=== PATIENT | male | born 1930 | race American Indian/Alaskan Native ===

== ENCOUNTER 2016-12-10 09:40 | Day surgery (SDC) | payer MEDICARE ==
[2016-12-10] MEDS ORDERED: HEPARIN/NS 5000 UNIT/500ML(CATH LAB) 1,000 ML IR ONE (10:55)
[2016-12-10] MEDS ORDERED: HEPARIN 10,000 UNITS/10 ML ONE (10:55)
[2016-12-10] MEDS ORDERED: XYLOCAINE 2% INFILTRATI ONE (10:56)
[2016-12-10 11:00] LABS: Hematocrit 36.1 % (35.5-45.6); Hemoglobin 11.7 gm/dl (11.8-15.2); Mean Corpuscular HGB Conc 32 % (32-34); Mean Corpuscular Hemoglobin 30 pg (28-32); Mean Corpuscular Volume 92 fl (84-94); Platelet Count 174 K/mm3 (140-440); Red Blood Count 3.93 M/mm3 (3.65-5.03); Red Cell Distribution Width 15.8 % (13.2-15.2); White Blood Count 2.5 K/mm3 (4.5-11.0)
[2016-12-10] MEDS ORDERED: NACL 0.45% 500 ML IV SCH (11:00)
[2016-12-10] MEDS ORDERED: NACL 0.9% 500 ML 500 ML IV SCH (11:00)
[2016-12-10 11:12] LABS: INR 1.08 (0.87-1.13)
[2016-12-10 11:14] LABS: Anion Gap 16 mmol/L; BUN/Creatinine Ratio 18.57; Blood Urea Nitrogen 13 mg/dL (9-20); Calcium 8.4 mg/dL (8.4-10.2); Carbon Dioxide 25 mmol/L (22-30); Glucose 85 mg/dL (75-100); Potassium 4.5 mmol/L (3.6-5.0); Sodium 140 mmol/L (137-145)
[2016-12-10] MEDS ORDERED: VERSED ONE (11:37)
[2016-12-10] MEDS ORDERED: SUBLIMAZE ONE (11:37)
[2016-12-10 11:38] LABS: Blastocytes % (Manual) 0 %; Diff Status Complete; Ovalocytes Rare; Platelet Estimate Appears Decreased; Schistocytes Rare
[2016-12-10] MEDS ORDERED: ATROPINE 0.1% (CARDIAC) ONE (12:18)
[2016-12-10] MEDS ORDERED: CATAPRES PO PRN (12:49)
--- NOTE | 2016-12-10 12:49 | Discharge Summary ---
Short Stay Discharge Plan Activity: advance as tolerated Weight Bearing Status: Partial Weight Bearing Diet: low fat, low cholesterol, low salt Wound: keep clean and dry Special Instructions: no heavy lifting (3 days) Follow up with: NAZ MONTAÑO MD [Primary Care Provider] - 7 Days Prescriptions: Enalapril Maleate [Vasotec] 10 mg PO DAILY #30 tablet
[2016-12-10] MEDS ORDERED: NACL 0.9% 1000 ML 1,000 ML IV SCH (13:00)
--- NOTE | 2016-12-10 13:56 | Cardiac Catherization Report ---
CARDIAC CATHETERIZATION REASON FOR PROCEDURE: The patient is an 86-year-old man that presented with symptoms of unstable angina, which he describes as progressive, low threshold, exertional chest pain and shortness of breath, ongoing for 3-4 weeks. He was recommended for diagnostic coronary angiography. DESCRIPTION OF PROCEDURE: The patient was prepped and draped in a sterile fashion after informed consent. The right femoral artery was entered using the Seldinger technique followed by placement of a 6-Swedish sheath. Selective left and right coronary angiography was performed using #4 left and right Tory catheters. A pigtail catheter was used for left ventricular angiography. The catheters were removed, sheath removed, and hemostasis achieved using an Angio-Seal device. The patient was returned to the postprocedure unit in stable condition. There were no complications. FINDINGS: HEMODYNAMICS: Left ventricle end diastolic pressure was 13. Ascending aortic pressure was 203/76. There was no significant pressure gradient on pullback across the aortic valve. CORONARY ANGIOGRAPHY: The left main coronary artery was free of significant disease. The left anterior descending artery and its diagonal branches contained diffuse mild atherosclerosis. No significant obstructive lesions were noted in the LAD system. The circumflex artery and its obtuse marginal branches similarly contained diffuse mild atherosclerosis, with no significant obstructive lesions. The right coronary artery was dominant. This vessel contained diffuse mild atherosclerosis of its proximal and mid segments. This vessel was also notable for the absence of significant obstructive lesions. Left ventricular systolic function was mildly impaired, ejection fraction 45-50%. CONCLUSION: 1. Mild luminal irregularities as above, no significant coronary lesions identified. 2. Mild left ventricular systolic dysfunction, ejection fraction 45-50%. RECOMMENDATION: Risk factor modification and medical therapy. [facility]# [id number] [place]/NTS
[2016-12-10 16:49] VITALS: BP 143/72
== END 2016-12-10 17:05 | disposition home or self-care (01) ==
LOC: EDBD 09:40 → OPU 09:40
PROVIDERS: ATTEND Internal Medicine Cardiovascular Disease
DX: I25.119 Atherosclerotic heart disease of native coronary artery with unspecified angina pectoris (principal); I10 Essential (primary) hypertension; M15.9 Polyosteoarthritis, unspecified; F15.90 Other stimulant use, unspecified, uncomplicated; Z82.49 Family history of ischemic heart disease and other diseases of the circulatory system; Z87.891 Personal history of nicotine dependence
CPT/HCPCS: 36415; 80048; 85007; 85025; 85610; 85730; 93005; 93010; 93458; C1760; C1894; J1644; J2250; J3010; J7040; J0461; Q9967